=== PATIENT | male | born 1975 | race Caucasian/White ===

== ENCOUNTER 2017-01-31 13:38 | Emergency (ER) | payer OTHER ==
[~2017-01-31] VITALS: Ht 172.7 cm; Wt 63.6 kg
[2017-01-31 13:40] VITALS: BP 111/75; PULSE 67; RESP 15; O2SAT 100
--- NOTE | 2017-01-31 13:44 | ED.REPORT ---
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 He c/o associated cough. He denies lower extremity numbness and bowel or bladder incontinence. Pt reports that he was seeing a neurosurgeon prior to moving, and a spinal fusion was recommended. His current doctor advised against the spinal fusion. The pt normally takes Meloxicam and Gabapentin. The pt denies IV drug use. Nursing Notes Stated Complaint: BACK PAIN Chief Complaint: Back Pain or Injury Nursing Notes Reviewed: Yes Allergies: Coded Allergies: No Known Allergies (Unverified , 01/31/17) Scheduled Prednisone (PredniSONE) 20 Mg Tablet 40 MG PO DAILY Scheduled PRN Diazepam (Valium) 2 Mg Tablet 2 MG PO TID PRN PRN For Anxiety General Time Seen by MD: 13:44 Chief Complaint Back pain Hx Obtained From: Patient Arrived By: Walk-in Sudden in Onset?: No Onset Occurred: 5 - 8 hours ago Symptom Duration: Since onset Caused by: Aggravated old injury Location: : Perispinal lumbar Quality: Painful Severity: Current: Moderate Severity: Maximum: Moderate Recent Healthcare: Recent doctor visit Similar Sx Previous: Yes Past Medical History Past Medical History Chronic back pain Denies: Congestive heart failure, Diabetes mellitus Past Surgical History Right hand surgery Right shoulder surgery Family History Noncontributory Smoking History Unknown if Ever Smoker Social History Alcohol Use: "Social" Drug Use: Denies drug use Other Social History: Good social support, Local resident Ambulatory Status Independent Review of Systems Constitutional: Denies: Chills, Fever Respiratory: Reports: Non-productive cough, Denies: Shortness of breath Musculoskeletal: Reports: Back pain Neurologic: Denies: Bladder dysfunction, Bowel dysfunction, Numbness Complete sys rev & neg: except as marked. Physical Exam Initial Vital Signs Vital Signs (First) Date Time Temp Pulse Resp B/P Pulse Ox O2 Delivery O2 Flow Rate FiO2 01/31/17 13:40 36.4 67 15 111/75 100 Room Air Initial VS: Reviewed Head / Eyes: Atraumatic, Normocephalic, PERRL ENT: Mucous membranes moist, Conjunctiva normal, No scleral icterus Neck: Supple, Full range of motion Extremities: Vascular intact, Neuro intact, No swelling, No tenderness Psychiatric: Mood/affect normal, Behavior normal General/Constitutional: Awake, Alert, Cooperative, Not toxic appearing Distress / Hydration: Positive: Distress moderate Appearance / Presentation: Positive: In pain, Uncomfortable Respiratory / Chest: Atraumatic, Breath sounds NL, Breath sounds = bilat Cardiovascular: Heart rate NL, Regular rhythm, Heart sounds NL Abdomen: Atraumatic, Soft, Non-tender Back: Atraumatic, Straight leg raise neg Right paraspinal tenderness Neurologic: Oriented X3, Speech NL, No motor deficits, No sensory deficits Skin: Atraumatic, Color NL, Warm, Dry, Intact Multiple tattoos Re-Eval/Medical Decision Med Decision/Clinical Course Acute on chronic low back exacerbation without radicular symptoms or other high-risk features. No reported history of IVDA, no fever. We will discharge on prednisone and low-dose of Valium. Return and follow-up precautions given Source of Hx: Old records Re-Evaluation/Progress : Time of Eval: 14:01 Re-Evaluation/Progress Note: Pt rechecked. Informed pt of plan for discharge. Pt understands and agrees with plan for discharge. F/U instructions and RTER warnings given. All questions addressed. Counseled Regarding: Diagnosis, Need for follow-up, When/why to return to ED Discharge & Departure Impression: Primary Impression: Lumbar strain Encounter type: initial encounter Qualified Code: S39.012A - Strain of muscle, fascia and tendon of lower back, initial encounter Disposition: Home Discharge Condition All VS Reviewed: Yes Condition: Stable Patient Instructions: Low Back Strain (ED) Additional Instructions: Follow-up with your primary care doctor. Use the medications as prescribed. Return to the ER as needed for loss of bowel or bladder function, persistent numbness or weakness going down your legs, or other concerns. Referrals: Panda Matute MD (PCP) (Family) Scribe Attestation Portions of this note were transcribed by Mode Keenan and Ophelia Prater. I, Dr. Ashby personally performed the history, physical exam and medical decision-making; I reviewed and confirmed the accuracy of the information in the transcribed note. Signed by: Mode Keenan and Declan Perrin, 01/31/17 and 14:13 copies to: WinPanda garcía MD, Timothy S DO Jan 31, 2017 13:44 Ophelia Holly Jan 31, 2017 13:59 MODE KEENAN Jan 31, 2017 14:11
[2017-01-31] MEDS ORDERED: predniSONE 20 mg Tablet PO ONE (13:55)
[2017-01-31] MEDS ORDERED: DIAZ2TAB PO (13:59)
[2017-01-31] MEDS ORDERED: PRE20 PO (13:59)
[2017-01-31 15:00] VITALS: BP 101/65; PULSE 80; RESP 20; O2SAT 98
== END 2017-01-31 15:01 | disposition home or self-care (01) ==
LOC: SED 13:38
DX: S39.012A Strain of muscle, fascia and tendon of lower back, initial encounter (principal); X50.0XXA Overexertion from strenuous movement or load, initial encounter; Y93.89 Activity, other specified; Y92.9 Unspecified place or not applicable; Y99.8 Other external cause status; Z79.899 Other long term (current) drug therapy

== ENCOUNTER 2017-03-24 21:33 | Emergency (ER) | payer OTHER ==
[~2017-03-24] VITALS: Ht 170.2 cm; Wt 64.0 kg
[2017-03-24 21:33] VITALS: BP 128/72; PULSE 58; RESP 20; O2SAT 99
[~2017-03-24 21:33] MED LIST: DIAZ2TAB PO; PRE20 PO
--- NOTE | 2017-03-24 21:45 | ED.REPORT ---
HPI-Trauma Minor / Fall Date of Service Mar 24, 2017 ED Provider: Femi Carlson MD Pt is a 41 year old male with a history of chronic back pain who presents to the ED after a ground fall prior to arrival. He c/o associated right shoulder pain and left foot pain. The pt was on a skateboard when he fell on his head and shoulders. He was not wearing a helmet at the time. Pt had consumed at least 4 beers prior to the incident. The pt reports that his tetanus shot was within 10 years. Nursing Notes Stated Complaint: HEAD/FOOT/SHOULDER INJURIES, SKATEBOARD ACCIDENT Chief Complaint: Extremity Trauma Nursing Notes Reviewed: Yes Allergies: Coded Allergies: No Known Allergies (Unverified , 03/24/17) Scheduled Prednisone (PredniSONE) 20 Mg Tablet 40 MG PO DAILY Scheduled PRN Diazepam (Valium) 2 Mg Tablet 2 MG PO TID PRN PRN For Anxiety General Time Seen by MD: 21:45 Chief Complaint Fall Hx Obtained From: Patient Arrived By: Walk-in Onset Occurred: Just prior to arrival Symptom Duration: Since onset Location: Foot left Shoulder right Quality: Painful Severity: Current: Moderate Severity: Maximum: Moderate Past Medical History Past Medical History Chronic back pain Past Surgical History Right hand surgery Right shoulder surgery Family History Noncontributory Smoking History Unknown if Ever Smoker Social History Alcohol Use: "Social" Drug Use: Denies drug use Other Social History: Good social support, Local resident Ambulatory Status Independent Review of Systems + Left foot pain Musculoskeletal: Reports: Extremity pain Neurologic: Denies: Change LOC, Syncope Complete sys rev & neg: except as marked. Physical Exam Initial Vital Signs Vital Signs (First) Date Time Temp Pulse Resp B/P Pulse Ox O2 Delivery O2 Flow Rate FiO2 03/24/17 21:33 36.8 58 20 128/72 99 Room Air Initial VS: Reviewed Head / Eyes: Atraumatic, Normocephalic Skin: Warm, Dry, No cyanosis Neurologic: Alert, Oriented, Nonfocal Psychiatric: Mood/affect normal, Behavior normal General/Constitutional: Awake, Alert Smell of alcohol in his breath. Neck: Full range of motion No tenderness with step-off. Midline tenderness. Upper Extremity / MS: Neurologic intact, Vascular intact Road rash on right shoulder Lower Extremity / Pelvis / MS: Neurologic intact, Vascular intact Ankle / Foot: Neurologic intact, Vascular intact Left 1st toe: motor intact and pulses intact. Left big toe has an abrasion involving the medial aspect of his toe. It is superficial and not partial thickness. It involves approximately a quarter of his toe. No deformity and capillary refill is brisk. Interpretation & Diagnostics X-Ray Interpretation Xray Interpretation: No acute bony injury X-Ray Ordered: Shoulder right Interpretation / Wet Read by: Wet read ED physician Xray Interpretation: No fracture X-Ray Ordered: Foot left Interpretation / Wet Read by: Wet read ED physician CT Head Interpretation CONCLUSION: No acute intracranial abnormality. Transmitted to the ED at 22:10 by Shiela Kwong M.D. CT C-Spine Interpretation CONCLUSION: No acute cervical spine fracture. Spondylosis and disc bulges, with neuroforaminal and spinal canal narrowing. Transmitted to the ED at 22:40 by Sheila Kwong M.D Study type: CT no contrast Interpretation / Wet Read by: Interpret - Radiologist Re-Eval/Medical Decision Source of Hx: Old records Re-Evaluation/Progress : Time of Eval: 23:57 Re-Evaluation/Progress Note: Pt rechecked. Informed pt of plan for discharge. Pt understands and agrees with plan for discharge. F/U instructions and RTER warnings given. All questions addressed. Counseled Regarding: Diagnosis, Need for follow-up, When/why to return to ED Discharge & Departure Impression: Primary Impression: Abrasion Disposition: Home Discharge Condition All VS Reviewed: Yes Condition: Stable Patient Instructions: Acute Wound Care (ED) Additional Instructions: Emergency Department evaluation included area, examination imaging of her brain cervical spine right shoulder and left foot. No serious injuries identified. There are multiple abrasions which have been cleaned and dressed. Keep the abrasions covered with antibiotic ointment and then a gauze dressing. Versions to the left big toe should be covered with a gauze dressing and then protected with a loose fitting shoe. Ice to sore areas, ibuprofen as needed for pain. Return to ED for severe headache, vomiting, redness/swelling at wounds. Follow up with primary care in 1 week. Referrals: Panda Matute MD (PCP) (Family) Scribe Attestation Portions of this note were transcribed by Ophelia Prater. I, Dr. Carlson personally performed the history, physical exam and medical decision-making; I reviewed and confirmed the accuracy of the information in the transcribed note. Signed by : Declan Perrin, 03/24/17. copies to: Panda Matute MD, Donald L MD Mar 24, 2017 21:45 Ophelia Holly Mar 24, 2017 22:03
[2017-03-24] MEDS ORDERED: Lidocaine-Epi-Tetracaine Solution 3 mL Syringe TOPICAL ONE (23:17)
[2017-03-25] MEDS ORDERED: Bacitracin Ointment Packet TOPICAL ONE (00:05)
--- NOTE | 2017-03-25 07:48 | DRSVH ---
PROCEDURE: CT BRAIN WITHOUT CONTRAST ([id number]) INDICATIONS: trauma TECHNIQUE: Noncontrast 4.5 mm thick angled axial sections acquired from the foramen magnum to the vertex, with c oronal reformats. COMPARISON: None. FINDINGS: Image quality: Excellent. CSF spaces: Basal cisterns are patent. No extra-axial fluid collections. Ventricles are normal in size and shape. Brain: No midline shift. No intracranial masses or hemorrhage. Chew-white matter interface is norm al. Skull and face: Calvarium and visualized facial bones are intact, without suspicious lesions. Sinuses: Visualized sinuses and mastoids are clear. IMPRESSION: 1. No CT evidence of acute intracranial pathology. 2. There are no discrepancies with the preliminary report. Dictated by: Moy Sarmiento M.D. on 03/25/2017 at 7:46 Approved by: Moy Sarmiento M.D. on 03/25/2017 at 7:47
--- NOTE | 2017-03-25 07:53 | DRSVH ---
PROCEDURE: CT CERVICAL SPINE WITHOUT CONTRAST ([id number]) INDICATIONS: trauma head/neck pain intoxicated TECHNIQUE: Noncontrast 3 mm thick sections acquired from the skull base to the T4 level. Sagittal and coronal r eformats were then constructed. For radiation dose reduction, the following was used: automated exp osure control, adjustment of mA and/or kV according to patient size. COMPARISON: None. FINDINGS: Image quality: Excellent. Bones: No fractures or dislocations. Visualized superior ribs are intact. Multilevel intervertebra l body disc height loss and facet joint hypertrophy with broad-based posterior disc bulges. Findings are greatest at C3-C6. Soft tissues: Prevertebral soft tissues are normal in thickness. No paravertebral hematomas. No ap ical pneumothoraces. IMPRESSION: 1. No acute fractures. 2. Multilevel degenerative changes greater than expected for the patient's age causing multilevel jan ral foraminal and central spinal canal stenosis. Consider a noncontrast MRI for further characterizat ion if there is clinical evidence of central spinal canal or neural foraminal narrowing. 3. There are no discrepancies with the preliminary report. Dictated by: Moy Sarmiento M.D. on 03/25/2017 at 7:47 Approved by: Moy Sarmiento M.D. on 03/25/2017 at 7:51
--- NOTE | 2017-03-25 08:47 | DRSVH ---
PROCEDURE: X-RAY LEFT FOOT COMPLETE, MINIMUM THREE VIEWS ([id number]) INDICATIONS: trauma TECHNIQUE: 3 views of the foot were acquired. COMPARISON: None. FINDINGS: Bones: No fractures or dislocations. No suspicious bony lesions. Soft tissues: No tibiotalar joint effusion. Achilles tendon appears normal. IMPRESSION: No displaced fracture seen. If there is continued pain, followup exam or additional edgar ging such as MRI or CT could be performed for further assessment. Dictated by: Dhriaj Mills Liliam Interpreted: Mica Cummins MD on 03/25/2017 at 8:46 Transcribed by: OLMAN on 03/25/2017 at 8:46 Approved by: Mica Cummins M.D. on 03/25/2017 at 9:20
--- NOTE | 2017-03-25 08:47 | DRSVH ---
PROCEDURE: X-RAY RIGHT SHOULDER, MINIMUM TWO VIEWS ([id number]) INDICATIONS: trauma TECHNIQUE: 3 views of the shoulder were acquired. COMPARISON: [facility], CR, XR SHOULDER 4 VW RT, 06/08/2016, 12:32. FINDINGS: Bones: No fractures or dislocations. Widening of the acromioclavicular joint redemonstrated likely postsurgical. No suspicious bony lesions. Visualized ribs appear intact. Soft tissues: No suspicious soft tissue calcifications. IMPRESSION: No displaced fracture seen. If there is continued pain, followup exam or additional edgar ging such as MRI or CT could be performed for further assessment. Dictated by: Dhiraj Mills RRLiliam Interpreted: Mica Cummins MD on 03/25/2017 at 8:45 Transcribed by: OLMAN on 03/25/2017 at 8:46 Approved by: Mica Cummins M.D. on 03/25/2017 at 9:21
== END 2017-03-25 00:34 | disposition home or self-care (01) ==
LOC: SED 21:33
DX: S90.412A Abrasion, left great toe, initial encounter (principal); V00.131A Fall from skateboard, initial encounter; Y93.51 Activity, roller skating (inline) and skateboarding; Y92.9 Unspecified place or not applicable; Y99.8 Other external cause status